=== PATIENT | male | born 1985 | race Caucasian/White ===

== ENCOUNTER 2020-09-22 14:58 | Outpatient (REF) | payer OTHER, SELFPAY | END 2020-09-22 14:59 | disposition home or self-care (01) | LOC: HO.LAB 14:58 | PROVIDERS: Visit Provider Internal Medicine | DX: Z20.828 Contact with and (suspected) exposure to other viral communicable diseases (principal) | CPT/HCPCS: C9803; U0003 ==

== ENCOUNTER 2024-12-28 16:18 | Outpatient (REF) | payer SELFPAY ==
--- OUTSIDE RECORDS SUMMARY | 2024-12-28 16:53 | XMS_ITS | Data Portability ---
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) MDM MODERATE MUST MEET 2 OUT OF 3 ELEMENTS: PROBLEMS, DATA OR RISK ELEMENT 1: PROBLEMS ADDRESSED 1 OR MORE CHRONIC ILLNESS WITH EXACERBATION OR 2 OR MORE STABLE CHRONIC ILLNESSES OR 1 UNDIAGNOSED NEW PROBLEM OR 1 ACUTE ILLNESS W/SYMPTOMS OR 1 ACUTE COMPLICATED INJURY ELEMENT 2: DATA MUST MEET 1 OF 3 CATEGORIES CATEGORY 1: REVIEW OF PRIOR EXTERNAL NOTES, REVIEW OF RESULTS, ORDERING OF EACH TEST, ASSESSMENT REQUIRING INDEPENDENT HISTORIAN OR CATEGORY 2: INDEPENDENT INTERPRETATION OF TESTS BY ANOTHER PHYSICIAN OR SPECIALIST OR CATEGORY 3: DISCUSSION OF MGT OR TEST INTERPRETATION W/EXTERNAL PHYSICIAN OR SPECIALIST ELEMENT 3: RISK RISK OF COMPLICATIONS AND/OR MORBIDITY OR MORTALITY OF PATIENT MANAGEMENT PROVIDER MUST THOROUGHLY DOCUMENT EACH ELEMENT THAT IS COVERED Not available 05/12/2021 16:04:15 05/22/2021 05/22/2021 [id number] [place] [id number] (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 REVIEW OF PRIOR EXTERNAL NOTES/RESULTS, ORDERING OF TEST(S) CATEGORY 2. ASSESSMENT REQUIRING INDEPENDENT HISTORIAN(S) INCLUDE WHO THE HISTORIAN IS AND RELATION TO PT AND WHY PT IS UNABLE TO GIVE COMPLETE HISTORY ELEMENT 3: RISK (LOW) RISK OF COMPLICATIONS AND/OR MORBIDITY OR MORTALITY OF PATIENT MANAGEMENT PROVIDER MUST THOROUGHLY DOCUMENT ALL OF THE ELEMENTS COVERED Not available 05/22/2021 15:35:44 Plan of Treatment Reminders Order Date Submit Date Provider Last Modified By Organization Details Last Modified Time Details Appointments NEW PROBLEM 15 2024 03:45P M DR BAILEY Not available Not available Not available Lab testoster one, total, serum 2024 [facility], [address] [place] [address], [id number], 12/28/2024 16:17:45 CBC w/ auto diff 2024 [facility], [address] [place] [address], [id number], 12/28/2024 16:17:45 TSH, serum or plasma 2024 [facility], [address] [place] [address], [id number], 12/28/2024 16:17:44 HbA1c (hemoglob in A1c), blood 2024 [facility], [address] [place] [address], [id number], 12/28/2024 16:17:45 vitamin B12, serum 2024 [facility], [address] [place] [address], [id number], 12/28/2024 16:17:45 vitamin D, 25-hydrox y, total, serum 2024 [facility], [address] [place] [address], [id number], 12/28/2024 16:17:44 CMP, serum or plasma 2020 021 [email or web address] Not available 05/12/2021 16:13:23 CBC w/ auto diff 2020 021 [email or web address] Not available 05/12/2021 16:13:23 hepatitis panel (A+B+C), acute, serum 2020 021 [email or web address] Not available 05/12/2021 16:13:23 rapid flu (A+B) 2019 020 [facility] Not available 01/08/2020 07:50:12 Referral None recorded. Procedures None recorded. Surgeries None recorded. Imaging None recorded. Medication Orders None recorded. Patient TargetsNo targets recorded. Patient Instructions Encounter Date Encounter Id Patient Instructions Last Modified By Organization Details Last Modified Time 12/28/2024 [id number] hair loss from alopecia areata: care instructions Not available 12/28/2024 16:16:30 Reason for Referral None Reported. Results Created Date Observation Date Name Description Value Unit Range Abnormal Flag Note LastModifiedBy Organization Detail LastModifiedTime Result Notes None recorded. Problems Name Problem SNOMED Code Status Onset Date Resolution Date Notes Provider Name and Address Organization Details Recorded Time Anxiety 37860755 Active 2020 Miladis funes [facility] 5 09:08:23 Gastroesop hageal reflux disease 561255732 Active 2020 Miladis funes [facility] 5 09:08:23 Insomnia 953182900 Active 2020 Miladis funes [facility] 5 09:08:23 Alopecia 19369680 Active 2024 Lázaro Bailey, DO [address] [place] [address], [place], [address], [facility] 5 16:14:13 Problem Notes None recorded. Medical Equipment None Reported. Allergies No known drug allergies Medications Name Sig Start Date Stop Date Status Note LastModified by Organization Details LastModified Time amoxicillin 500 mg capsule TAKE 1 CAPSULE BY MOUTH EVERY 8 HOURS UNTIL GONE 12/28 completed Not Available Not Available Not Available chlorhexidi ne gluconate 0.12 % mouthwash USE MONOJET SYRINGE AFTER BRUSHING AND SPIT TWICE DAILY 12/28 completed Not Available Not Available Not Available PreviDent 5000 Booster Plus 1.1 % dental paste active Not Available Not Available Not Available Vitals Date Recorded Body height Body mass index (BMI) Body weight Heart rate Oxygen saturation Oxygen saturation in Arterial blood by Pulse oximetry Body temperature Systolic blood pressure Diastolic blood pressure Provider Name and Address Organization Details Last Updated DateTime 0 182.88 cm 28.4 kg/m2 49509.6 g 127 /min 97 % 97 % 98.6 [degF] 120 mm[Hg] 92 mm[Hg] Alize Aguirre [facility] 0 16:18:45 Date Recorded Body weight Heart rate Oxygen saturation Oxygen saturation in Arterial blood by Pulse oximetry Systolic blood pressure Diastolic blood pressure Provider Name and Address Organization Details Last Updated DateTime 1 08525.3 g 108 /min 97 % 97 % 160 mm[Hg] 90 mm[Hg] Lázaro Bailey DO [address] [place], [address] 1 15:47:18 Date Recorded Body height Body mass index (BMI) Body weight Heart rate Oxygen saturation Oxygen saturation in Arterial blood by Pulse oximetry Systolic blood pressure Diastolic blood pressure Provider Name and Address Organization Details Last Updated DateTime 1 182.88 cm 27.4 kg/m2 17116.3 g 107 /min 97 % 97 % 132 mm[Hg] 80 mm[Hg] Lázaro Bailey DO [address] [place], [address] 1 15:21:39 Date Recorded Body height Body mass index (BMI) Body weight Heart rate Oxygen saturation Oxygen saturation in Arterial blood by Pulse oximetry Systolic blood pressure Diastolic blood pressure Provider Name and Address Organization Details Last Updated DateTime 5 182.88 cm 30.4 kg/m2 214816. 13 g 83 /min 98 % 98 % 124 mm[Hg] 78 mm[Hg] Miladis Marroquin [facility] 5 15:47:33 Social History Question Answer Notes LastModified by Organizat ion Details LastModified Time Tobacco Smoking Status Current Every Day Smoker Not Available [facility] 08/19/2020 03:36:23 What Was The Date Of Your Most Recent Tobacco Screening? 12/28/2024 Information not available 12/28/2024 How Much Tobacco Do You Smoke? 0.5 PPD Information not available 12/28/2024 Sex: Unknown Functional Status None recorded. Mental Status None recorded. Family History Nothing Reported. Medical History No medical history recorded. Immunizations Vaccine Type Date Status Note Provider Alfie morrison and Address Organization Details Recorded Time COVID-19, mRNA, LNP-S, PF, 30 mcg/0.3 mL dose 06/14/2021 completed Brooke funes [facility] 06/23/2021 16:53:22 Past Encounters Encounter ID Performer Location Encounter Start Date Encounter Closed Date Diagnosis/Indication Diagnosis SNOMED-CT Code Diagnosis ICD10 Code Diagnosis Note [id number] [facility] [address] [facility] [address] 01/07/2020 16:12:08 01/07/2020 16:34:29 Exposure to Influenzavirus 166056219 Z20.828 no sx, though rapid HR will get stat flu swab [id number] Lázaro Bailey [facility] [address] [facility] [address] 05/12/2021 15:43:53 05/12/2021 16:15:25 Drug abuse 07255423 F19.10 he will need lab done as soon as he gets life insuranceh e will cont to work hard to withold from cocaine and see his counselor [id number] Lázaro Bailey [facility] [address] [email or web address] [address] 05/22/2021 15:16:37 05/22/2021 15:45:02 Substance abuse 67747568 F19.10 here for rechk and is doing good still abstinent and we will await the labwork and see him in a month [id number] Lázaro Bailey [facility] [address] [email or web address] [address] 12/28/2024 15:20:18 12/28/2024 16:23:10 Depression screening 557396108 Z13.31 Alopecia 21768603 L65.9 Health Concerns Section Related Observation LastModified by Organization Detai ls LastModified Time None Recorded Concern Status LastModified by Organization Details LastModified Time None Recorded Advance Directives Directive None Recorded Payers Encounter Date Sequence Insurance Name Policy Number Policy Castro Covered Member ID Castro Member ID Guarantor Name 01/07/2020 1 [facility] [id number] Wilbur Fermin [id number] Wilbur Fermin 05/12/2021 SLIDING FEE SCHEDULE - DISCOUNT Wilbur Fermin 05/22/2021 SLIDING FEE SCHEDULE - DISCOUNT Wilbur Fermin Notes Date Note Type Note Provider Name a nd Address Organization Details Recorded Time 0 text/html no sx niece has flu a saw her last week need testing to go back to work 12 system ROS negative except where noted above- denies: chest pain, palpitations, sob, ankle swelling, visual problems, hearing problems, muscle aches or pains, numbness or tingling extremities, abdominal pain, bowel issues, bladder issues, sexual dysfunction, abnormal bleeding, sx of sinus/respiratory infection , headaches, dizziness/lightheadedn ess, rashes, or nail changes. JACQUI Sandhu [address] [place] [address], [phone], [facility] 01/07/2020 16:26:19 1 text/html has been using cocaine on a regular basis for the past 6-7 yearsstates he was using up to 4+ gm a dayquit 10 days agohe has fatigue and tiredness right now and is having muscle aching but no bad withdrawalrelates he has applied for masshealthalso has a counselor Lázaro Bailey DO [address] [place] [address], [phone], [facility] 05/12/2021 16:11:29 1 text/html here for [facility]chkworking [facility] his insu20 days out from abstinincestates feeling better every day Lázaro Bailey DO [address] [place], [address], [facility] 05/22/2021 15:38:45 5 text/html first started noticing loss of hair on his face l ost hair on his beardand then noticed a patch on his scalpprob for 3-4 months at leastno other sx and feels good Lázaro Bailey, DO [address] [facility], [place], [address], [facility] 12/28/2024 16:41:25
[2024-12-28 17:53] LABS: MANUAL DIFF FLAG NO
[2024-12-28 18:11] LABS: Basophils Absolute Auto 0.1 X10*3/uL (0.0-0.2); Basophils Percent Auto 0.6 % (0-2); Eosinophils Absolute Auto 0.1 X10*3/uL (0.0-0.4); Hematocrit 44.4 % (42.0-52.0); Hemoglobin 15.4 g/dl (14.0-18.0); Imm Gran Abs Auto 0.02 X10*3/uL (0.00-0.03); Imm Gran Pct Auto 0.3 % (0.0-0.4); Lymphocytes Absolute Auto 2.3 X10*3/uL (1.2-4.9); Lymphocytes Percent Auto 29.6 % (20-40); Mean Corpuscular HGB Conc 34.7 g/dl (31.0-36.0); Mean Corpuscular Hemoglobin 29.8 pg (27.0-33.0); Mean Corpuscular Volume 85.9 fL (80.0-98.0); Mean Platelet Volume 10.7 fL (9.4-12.4); Monocytes Absolute Auto 0.6 X10*3/uL (0.1-1.2); Monocytes Percent Auto 8.2 % (2-11); Neutrophils Absolute Auto 4.6 x10*3/uL (2.0-8.3); Neutrophils Percent Auto 60.3 % (45-73); Platelet Count 344 X10*3/uL (160-400); Red Blood Count 5.17 X10*6/uL (4.60-5.80); Red Cell Distribution Width 12.3 % (11.0-16.0); White Blood Count 7.7 X10*3/uL (4.8-10.8)
[2024-12-28 18:42] LABS: Thyroid Stimulating Hormone 1.11 uIU/mL (0.32-4.0)
[2024-12-28 18:45] LABS: Vitamin B12 794 pg/mL (200-900)
[2024-12-29 03:47] LABS: Estimated Average Glucose 105 mg/dL; Hemoglobin A1c % 5.3 % (<6.0)
[2025-01-04 07:34] LABS: VITAMIN D (1,25 OH) D3 17 pg/mL; Vit D (1,25-Dihydroxy) Total 17 pg/mL (18-72); Vitamin D (1,25 OH) D2 <8 pg/mL
[2025-01-05 14:28] LABS: Testosterone, Total 425 ng/dL (250-1100)
== END 2024-12-28 16:19 | disposition home or self-care (01) ==
LOC: HO.MANLDS 16:18
PROVIDERS: Visit Provider Internal Medicine
DX: L65.9 Nonscarring hair loss, unspecified (principal); Z13.1 Encounter for screening for diabetes mellitus
CPT/HCPCS: 36415; 82607; 82652; 83036; 84403; 84443; 85025